=== PATIENT | female | born 2000 | race African-American/Black ===

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

== ENCOUNTER 2019-10-13 14:23 | Emergency (ER) | payer OTHER ==
[~2019-10-13] VITALS: Ht 160 cm; Wt 62.2 kg
[~2019-10-13 14:23] MED LIST changes: +RANI-376 PO; -RANI150T21 PO; +SULF1TAB24 PO; +TRIA80OI TP; +VITS42.55 TP
[2019-10-13 14:30] VITALS: BP 100/64
--- NOTE | 2019-10-13 14:45 | PHYS DOC ---
Past History Past Medical History: Asthma, UTI Past Surgical History: Other Additional Past Surgical Histo: WISDOM TEETH REMOVED Smoking: Non-smoker Alcohol Use: None Drug Use: None General Adult EDM: Chief Complaint: EARACHE/EAR PAIN HPI: HPI: 19-year-old female presents with foreign body in her left earlobe. The patient has earrings. She had the stone fall off of her left hearing yesterday or the day before. The basket holding the stone, and then pulled into the inner part of her ear. She has attempted to get it to pop back out, but cannot get it through the skin. The post and retainer are still sticking out the back of her ear. She has no other complaints. She denies fever chills. Review of Systems: Review of Systems: Constitutional: Denies fever or chills Eyes: Denies change in visual acuity HENT: Denies nasal congestion or sore throat. Left earlobe pain, foreign body. Respiratory: Denies cough or shortness of breath Cardiovascular: Denies chest pain or edema GI: Denies abdominal pain, nausea, vomiting, bloody stools or diarrhea : Denies dysuria Musculoskeletal: Denies back pain or joint pain Integument: Denies rash Neurologic: Denies headache, focal weakness or sensory changes Endocrine: Denies polyuria or polydipsia Lymphatic: Denies swollen glands Psychiatric: Denies depression or anxiety Heart Score: Risk Factors: Risk Factors: DM, Current or recent (<one month) smoker, HTN, HLP, family history of CAD, obesity. Risk Scores: Score 0 - 3: 2.5% MACE over next 6 weeks - Discharge Home Score 4 - 6: 20.3% MACE over next 6 weeks - Admit for Clinical Observation Score 7 - 10: 72.7% MACE over next 6 weeks - Early Invasive Strategies Allergies: Allergies: Allergies Coded Allergies Type Severity Reaction Last Updated Verified peanut Allergy Severe 02/23/16 Yes Fish Containing Products Allergy Unknown 02/23/16 Yes Physical Exam: PE: Constitutional: Well developed, well nourished, no acute distress, non-toxic appearance. [] HENT: Left earlobe with foreign body inside, earring post protruding from posterior earlobe. Normocephalic, atraumatic, oropharynx moist, no oral exudates, nose normal. [] Eyes: PERRLA, EOMI, conjunctiva normal, no discharge. [] Neck: Normal range of motion, no tenderness, supple, no stridor. [] Cardiovascular:Heart rate regular rhythm, no murmur [] Lungs & Thorax: Bilateral breath sounds clear to auscultation [] Abdomen: Bowel sounds normal, soft, no tenderness, no masses, no pulsatile mas ses. [] Skin: Warm, dry, no erythema, no rash. [] Back: No tenderness, no CVA tenderness. [] Extremities: No tenderness, no cyanosis, no clubbing, ROM intact, no edema. [] Neurologic: Alert and oriented X 3, normal motor function, normal sensory function, no focal deficits noted. [] Psychologic: Affect normal, judgement normal, mood normal. [] EKG: EKG: [] Radiology/Procedures: Radiology/Procedures: [] Course & Med Decision Making: Course & Med Decision Making Pertinent Labs and Imaging studies reviewed. (See chart for details) I was able to remove the earring from the patient's ear. See note below for more details. The patient is stable for discharge at this time. [] Dragon Disclaimer: Dragon Disclaimer: This electronic medical record was generated, in whole or in part, using a voice recognition dictation system. Foreign Body Removal Procedure Indication: Retained earring post in the left earlobe. Procedure: I obtained verbal consent from the patient for foreign body removal of her left earlobe. The wound area was cleansed with alcohol. I then injected 0.5 cc of 2% lidocaine without epinephrine. Once good anesthesia was achieved, I was able to physically manipulate the earring to come back out the anterior hole. I used needle drivers and my fingers. I placed locking forceps on the front of the earring while I removed the post stopper in the back. I was then able to completely remove the earring. All parts were intact. No further foreign bodies were palpated. Imaging was not needed. The patient tolerated the procedure well. Complications: None Departure Departure: Impression: Primary Impression: Foreign body in left ear lobe Qualified Codes: S00.452A - Superficial foreign body of left ear, initial encounter Disposition: HOME, SELF-CARE Condition: IMPROVED Referrals: PHONG PHAN (PCP) Patient Instructions: Ear Foreign Body, [id number] CLAUDIA LEWIS DO October 13, 2019 14:45
== END 2019-10-13 15:10 | disposition home or self-care (01) ==
LOC: ER 14:23
DX: S00.452A Superficial foreign body of left ear, initial encounter (principal); J45.909 Unspecified asthma, uncomplicated; Z87.440 Personal history of urinary (tract) infections; Z91.010 Allergy to peanuts; Z91.013 Allergy to seafood; X58.XXXA Exposure to other specified factors, initial encounter; Y93.89 Activity, other specified; Y92.89 Other specified places as the place of occurrence of the external cause; Y99.8 Other external cause status
CPT/HCPCS: 99284

== ENCOUNTER 2021-10-24 13:17 | Emergency (ER) | payer OTHER ==
[~2021-10-24] VITALS: Ht 160 cm; Wt 62.2 kg
[2021-10-24 13:18] VITALS: BP 120/82
[2021-10-24] MEDS ORDERED: AMOX1TAB61 PO (13:51)
--- NOTE | 2021-10-24 13:51 | PHYS DOC ---
Past History Past Medical History: Asthma, UTI Past Surgical History: Other Additional Past Surgical Histo: WISDOM TEETH REMOVED Smoking: Non-smoker Alcohol Use: None Drug Use: None General Adult EDM: Chief Complaint: ANIMAL BITE HPI: HPI: 21-year-old female presents after dog bite. The patient had the right side of her abdomen bit by her neighbors dog yesterday. She was saying hello to the neighbor and to the dog. The dog jumped up on her in a friendly way. At some point the dog seem to have nipped at the right side of her abdomen. She has some small puncture wounds in that area. She presents today at the advice of family. She denies significant pain. Denies fever or chills. Review of Systems: Review of Systems: Constitutional: Denies fever or chills Eyes: Denies change in visual acuity HENT: Denies nasal congestion or sore throat Respiratory: Denies cough or shortness of breath Cardiovascular: Denies chest pain or edema GI: Denies abdominal pain, nausea, vomiting, bloody stools or diarrhea : Denies dysuria Musculoskeletal: Denies back pain or joint pain Integument: Dog bite abdomen Neurologic: Denies headache, focal weakness or sensory changes Endocrine: Denies polyuria or polydipsia Lymphatic: Denies swollen glands Psychiatric: Denies depression or anxiety Allergies: Allergies: Allergies Coded Allergies Type Severity Reaction Last Updated Verified peanut Allergy Severe 02/23/16 Yes Fish Containing Products Allergy Unknown 02/23/16 Yes Physical Exam: PE: Constitutional: Well developed, well nourished, no acute distress, non-toxic appearance. [] HENT: Normocephalic, atraumatic, bilateral external ears normal, oropharynx moist, no oral exudates, nose normal. [] Eyes: PERRLA, EOMI, conjunctiva normal, no discharge. [] Neck: Normal range of motion, no tenderness, supple, no stridor. [] Cardiovascular: Heart rate regular rhythm, no murmur [] Lungs & Thorax: Bilateral breath sounds clear to auscultation [] Abdomen: Bowel sounds normal, soft, no tenderness, no masses, no pulsatile masses. [] Skin: 3 small puncture wounds of the right abdomen consistent with mild dog bite. [] Back: No tenderness, no CVA tenderness. [] Extremities: No tenderness, no cyanosis, no clubbing, ROM intact, no edema. [] Neurologic: Alert and oriented X 3, normal motor function, normal sensory function, no focal deficits noted. [] Psychologic: Affect normal, judgement normal, mood normal. [] EKG: EKG: [] Radiology/Procedures: Radiology/Procedures: [] Heart Score: C/O Chest Pain: N/A Risk Factors: Risk Factors: DM, Current or recent (<one month) smoker, HTN, HLP, family history of CAD, obesity. Risk Scores: Score 0 - 3: 2.5% MACE over next 6 weeks - Discharge Home Score 4 - 6: 20.3% MACE over next 6 weeks - Admit for Clinical Observation Score 7 - 10: 72.7% MACE over next 6 weeks - Early Invasive Strategies Course & Med Decision Making: Course & Med Decision Making Pertinent Labs and Imaging studies reviewed. (See chart for details) The patient's platelet looks good. There is no obvious sign of infection but I will treat her with Augmentin prophylactically. The dog is a known animal with all of its shots and a collar. Rabies prophylaxis is not indicated at this time. The patient is stable for discharge. [] Dragon Disclaimer: Dragon Disclaimer: This electronic medical record was generated, in whole or in part, using a voice recognition dictation system. Departure Departure: Impression: Primary Impression: Dog bite of abdomen Disposition: 01 HOME / SELF CARE / HOMELESS Condition: STABLE Referrals: PHONG PHAN (PCP) Patient Instructions: Animal Bite, [id number] Scripts Amoxicillin/Potassium Clav (AUGMENTIN 875-125 TABLET) 1 Each Tablet 1 TAB PO BID for animal bite for 7 Days, #14 TAB 0 Refills Prov: CLAUDIA LEWIS DO 10/24/21 CLAUDIA LEWIS DO October 24, 2021 13:51
== END 2021-10-24 15:27 | disposition home or self-care (01) ==
LOC: ER 13:17
DX: S31.159A Open bite of abdominal wall, unspecified quadrant without penetration into peritoneal cavity, initial encounter (principal); W54.0XXA Bitten by dog, initial encounter; Y93.89 Activity, other specified; Y92.89 Other specified places as the place of occurrence of the external cause; Y99.8 Other external cause status
CPT/HCPCS: 99283